=== PATIENT | female | born 1930 | race Caucasian/White ===

== ENCOUNTER 2017-05-10 10:57 | Emergency (ER) | payer MEDICARE ==
[2017-05-10] MEDS ORDERED: IPRATROPIUM-ALBUTEROL 3 ML NEB INHALATION STA (11:16)
[2017-05-10] MEDS ORDERED: SODIUM CHLORIDE 0.9% 1,000 ML IV STA (11:16)
--- NOTE | 2017-05-10 11:22 | ED ---
General Adult HPI - General Chief complaint: Dizziness Stated complaint: dizziness Time Seen by Provider: 05/10/17 11:04 Source: patient, RN notes reviewed Mode of arrival: EMS Limitations: no limitations - History of Present Illness Initial comments: Patient is a pleasant 87-year-old female presenting to the emergency department with lightheadedness. Patient states she got up to use the restroom this morning and afterwards felt lightheaded. Patient states that has improved. Patient states she felt somewhat weak all over which is also improved. Patient states now she feels somewhat shaky. Patient does have some nausea. Patient has been coughing up some phlegm which is fairly chronic for her. Patient states she did not get her breathing treatment this morning or take her medicine yet. - Related Data Home Medications Medication Instructions Recorded Confirmed Isosorbide Mononitrate ER [Imdur] 60 mg PO RT-BID 09/16/14 05/10/17 Losartan Potassium [Cozaar] 100 mg PO DAILY 09/16/14 05/10/17 Montelukast Sodium [Singulair] 10 mg PO HS 09/16/14 05/10/17 Vit C/E/Zn/Coppr/Lutein/Zeaxan 2 cap PO DAILY 09/16/14 05/10/17 [Preservision Areds 2 Softgel] amLODIPine [Norvasc] 10 mg PO HS 09/16/14 05/10/17 Albuterol Sulfate [Proair Hfa] 2 puff INHALATION RT-Q6H PRN 09/28/14 05/10/17 Ipratropium-Albuterol Nebulize 3 ml INHALATION RT-QID 09/28/14 05/10/17 [Duoneb 0.5 mg-3 mg/3 ml Soln] Acetaminophen/Diphenhydramine 1 tab PO HS PRN 12/06/15 05/10/17 [Tylenol PM 500-25mg] Aspirin EC [Ecotrin Low Dose] 81 mg PO DAILY 12/06/15 05/10/17 Loratadine [Claritin] 10 mg PO DAILY 12/06/15 05/10/17 Ranitidine HCl [Zantac] 150 mg PO DAILY 12/06/15 05/10/17 Fluticasone/Salmeterol [Advair 2 puff INHALATION RT-DAILY 05/10/17 05/10/17 250-50 Diskus] cloNIDine 0.3 MG/24HR PATCH 1 patch TRANSDERM FR 05/10/17 05/10/17 [Catapres-Tts 0.3MG Patch] Previous Rx's Medication Instructions Recorded Nitroglycerin Sl Tabs [Nitrostat] 0.4 mg SUBLINGUAL Q5M PRN #0 tab 09/25/14 Atorvastatin [Lipitor] 40 mg PO HS #60 tab 09/30/14 hydrALAZINE HCL [Apresoline] 50 mg PO TID #90 tab 10/10/14 LORazepam [Ativan] 0.5 mg PO HS PRN #14 tab 03/13/16 Allergies Allergy/AdvReac Type Severity Reaction Status Date / Time No Known Allergies Allergy Verified 05/10/17 11:14 Review of Systems ROS Statement: Those systems with pertinent positive or pertinent negative responses have been documented in the HPI. ROS Other: All systems not noted in ROS Statement are negative. Constitutional: Denies: fever Eyes: Denies: eye pain ENT: Denies: ear pain Respiratory: Reports: cough Cardiovascular: Denies: chest pain Endocrine: Reports: fatigue (Chronic) Gastrointestinal: Denies: abdominal pain Genitourinary: Denies: dysuria Musculoskeletal: Denies: back pain Skin: Denies: rash Neurological: Denies: confusion Past Medical History Past Medical History: Asthma, Coronary Artery Disease (CAD), Cancer, Heart Failure, COPD, CVA/TIA, Hyperlipidemia, Hypertension, Myocardial Infarction ([place]) , Osteoarthritis (OA), Pneumonia Additional Past Medical History / Comment(s): brain aneurysm, hiatal hernia, skin cancer, hx "3 blood clots in lt shoulder after rotator cuff surgery", macular degeneration Last Myocardial Infarction Date:: 2014 History of Any Multi-Drug Resistant Organisms: None Reported Past Surgical History: Adenoidectomy, Heart Catheterization, Heart Catheterization With Stent, Orthopedic Surgery, Tonsillectomy Additional Past Surgical History / Comment(s): rt shoulder, left rotator cuff, sandra knee arthroscopy, myringotomy, cataracts Past Anesthesia/Blood Transfusion Reactions: Motion Sickness Date of Last Stent Placement:: 09/2014 Past Psychological History: Anxiety Smoking Status: Former smoker - Past Family History Father Family Medical History: Cancer Mother Family Medical History: Deep Vein Thrombosis (DVT) General Exam Limitations: no limitations General appearance: alert, in no apparent distress Head exam: Present: atraumatic Eye exam: Present: normal appearance, PERRL ENT exam: Present: normal oropharynx Neck exam: Present: normal inspection Respiratory exam: Present: normal lung sounds bilaterally Cardiovascular Exam: Present: regular rate, normal rhythm GI/Abdominal exam: Present: soft, hernia (Large reducible ventral hernia without tenderness.). Absent: tenderness Extremities exam: Present: normal inspection Neurological exam: Present: alert, oriented X3, CN II-XII intact. Absent: motor sensory deficit Psychiatric exam: Present: normal affect, normal mood Skin exam: Present: normal color Course Vital Signs 05/10/17 05/10/17 05/10/17 11:05 11:21 11:24 Temperature 97 F L Pulse Rate 102 H 86 88 Respiratory 18 Rate Blood Pressure 209/92 O2 Sat by Pulse 93 L Oximetry 05/10/17 05/10/17 11:42 12:34 Temperature Pulse Rate 83 80 Respiratory 16 24 Rate Blood Pressure 189/98 186/87 O2 Sat by Pulse 98 94 L Oximetry - Reevaluation(s) Reevaluation #1: 05/10/17 13:36 Call received from radiologist regarding abnormal CT findings. Patient reevaluated. Patient and family updated. Patient states she has previously seen Dr. Solano and does have a history of aneurysm. [facility] will be contacted for transfer. 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 05/10/17 13:43 Case was discussed with Dr. Blair at [facility], who will accept transfer. EKG Findings - EKG Comments: EKG Findings:: Sinus rhythm 88. PVC present. IN 190. QRS 158. QT 426. QTc 515. Left axis. Left bundle branch block. Nonspecific ST-T. Medical Decision Making - Lab Data Result diagrams: 05/10/17 11:29 05/10/17 11:29 Lab Results 05/10/17 05/10/17 05/10/17 Range/Units 11:17 11:29 11:29 WBC 8.1 (3.8-10.6) k/uL RBC 4.92 (3.80-5.40) m/uL Hgb 14.1 (11.4-16.0) gm/dL Hct 45.1 (34.0-46.0) % MCV 91.7 (80.0-100.0) fL MCH 28.7 (25.0-35.0) pg MCHC 31.3 (31.0-37.0) g/dL RDW 14.1 (11.5-15.5) % Plt Count 250 (150-450) k/uL Neutrophils % 71 % Lymphocytes % 17 % Monocytes % 7 % Eosinophils % 3 % Basophils % 0 % Neutrophils # 5.7 (1.3-7.7) k/uL Lymphocytes # 1.4 (1.0-4.8) k/uL Monocytes # 0.5 (0-1.0) k/uL Eosinophils # 0.3 (0-0.7) k/uL Basophils # 0.0 (0-0.2) k/uL PT (9.0-12.0) sec INR (<1.2) APTT (22.0-30.0) sec Sodium 138 (137-145) mmol/L Potassium 3.5 (3.5-5.1) mmol/L Chloride 99 (98-107) mmol/L Carbon Dioxide 28 (22-30) mmol/L Anion Gap 11 mmol/L BUN 12 (7-17) mg/dL Creatinine 0.70 (0.52-1.04) mg/dL Est GFR (MDRD) Af Amer >60 (>60 ml/min/1.73 sqM) Est GFR (MDRD) Non-Af >60 (>60 ml/min/1.73 sqM) Glucose 156 H (74-99) mg/dL POC Glucose (mg/dL) 160 H (75-99) mg/dL POC Glu Lining Maker Hand ID Caridad Newberry Calcium 9.7 (8.4-10.2) mg/dL Total Bilirubin 0.7 (0.2-1.3) mg/dL AST 21 (14-36) U/L ALT 26 (9-52) U/L Alkaline Phosphatase 85 (38-126) U/L Total Creatine Kinase (30-135) U/L CK-MB (CK-2) (0.0-2.4) ng/mL CK-MB (CK-2) Rel Index Troponin I (0.000-0.034) ng/mL Total Protein 6.8 (6.3-8.2) g/dL Albumin 4.2 (3.5-5.0) g/dL 05/10/17 05/10/17 Range/Units 11:29 11:29 WBC (3.8-10.6) k/uL RBC (3.80-5.40) m/uL Hgb (11.4-16.0) gm/dL Hct (34.0-46.0) % MCV (80.0-100.0) fL MCH (25.0-35.0) pg MCHC (31.0-37.0) g/dL RDW (11.5-15.5) % Plt Count (150-450) k/uL Neutrophils % % Lymphocytes % % Monocytes % % Eosinophils % % Basophils % % Neutrophils # (1.3-7.7) k/uL Lymphocytes # (1.0-4.8) k/uL Monocytes # (0-1.0) k/uL Eosinophils # (0-0.7) k/uL Basophils # (0-0.2) k/uL PT 9.7 (9.0-12.0) sec INR 1.0 (<1.2) APTT 23.1 (22.0-30.0) sec Sodium (137-145) mmol/L Potassium (3.5-5.1) mmol/L Chloride (98-107) mmol/L Carbon Dioxide (22-30) mmol/L Anion Gap mmol/L BUN (7-17) mg/dL Creatinine (0.52-1.04) mg/dL Est GFR (MDRD) Af Amer (>60 ml/min/1.73 sqM) Est GFR (MDRD) Non-Af (>60 ml/min/1.73 sqM) Glucose (74-99) mg/dL POC Glucose (mg/dL) (75-99) mg/dL POC Glu Lining Maker Hand ID Calcium (8.4-10.2) mg/dL Total Bilirubin (0.2-1.3) mg/dL AST (14-36) U/L ALT (9-52) U/L Alkaline Phosphatase (38-126) U/L Total Creatine Kinase 49 (30-135) U/L CK-MB (CK-2) 1.2 (0.0-2.4) ng/mL CK-MB (CK-2) Rel Index 2.4 Troponin I 0.023 (0.000-0.034) ng/mL Total Protein (6.3-8.2) g/dL Albumin (3.5-5.0) g/dL - Radiology Data Radiology results: image reviewed (Computed tomography scan of the brain does show 1.1 x 1.5 x 1.8) parenchymal hemorrhage within the cerebellum. 1 view abdominal x-ray shows nonobstructive gas pattern. Two-view chest x-ray shows interstitial densities) Critical Care Time Critical Care Time: Yes Total Critical Care Time: 32 Disposition Clinical Impression: Cerebellar hemorrhage, acute Disposition: OTHER INSTITUTION NOT DEFINED Condition: Serious Referrals: Santi Lester MD [Primary Care Provider] - 1-2 days Time of Disposition: 13:45 - Out of Hospital Transfer - Req. Specs Out of Hospital Transfer - Requested Specifics: Other Emergency Center
[2017-05-10 11:23] LABS: Glucose,Whole Blood 160 mg/dL (75-99)
[2017-05-10] MEDS: METOCLOPRAMIDE 5 MG/ML 2 ML VIAL IVP STA ×2 (11:37→13:58)
[2017-05-10 11:43] LABS: Basophils % (A) 0 %; Eosinophils # (A) 0.3 k/uL (0-0.7); Eosinophils % (A) 3 %; HCT 45.1 % (34.0-46.0); HGB 14.1 gm/dL (11.4-16.0); Lymphocytes # (A) 1.4 k/uL (1.0-4.8); Lymphocytes % (A) 17 %; MCH 28.7 pg (25.0-35.0); MCHC 31.3 g/dL (31.0-37.0); MCV 91.7 fL (80.0-100.0); Mean Platelet Volume 6.7; Monocytes # (A) 0.5 k/uL (0-1.0); Monocytes % (A) 7 %; Neutrophils # (A) 5.7 k/uL (1.3-7.7); Neutrophils % (A) 71 %; Platelet Count 250 k/uL (150-450); RBC 4.92 m/uL (3.80-5.40); RDW 14.1 % (11.5-15.5); WBC 8.1 k/uL (3.8-10.6)
[2017-05-10 11:52] LABS: ALT 26 U/L (9-52); AST 21 U/L (14-36); Albumin 4.2 g/dL (3.5-5.0); Alkaline Phosphatase 85 U/L (38-126); Anion Gap 11 mmol/L; Blood Urea Nitrogen 12 mg/dL (7-17); Calcium 9.7 mg/dL (8.4-10.2); Carbon Dioxide 28 mmol/L (22-30); Chloride 99 mmol/L (98-107); Glucose 156 mg/dL (74-99); Potassium 3.5 mmol/L (3.5-5.1); Sodium 138 mmol/L (137-145); Total Bilirubin 0.7 mg/dL (0.2-1.3); Total Protein 6.8 g/dL (6.3-8.2)
[2017-05-10 12:19] LABS: Creatine Kinase MB 1.2 ng/mL (0.0-2.4); Troponin I 0.023 ng/mL (0.000-0.034)
[2017-05-10] MEDS ORDERED: ONDANSETRON 4 MG/2 ML VIAL IVP STA (12:30)
--- NOTE | 2017-05-10 12:31 | XR ---
EXAMINATION TYPE: XR chest 2V DATE OF EXAM: 05/10/2017 COMPARISON: 03/10/2016 HISTORY: 87-year-old female with a weakness and dizziness TECHNIQUE: AP and lateral views FINDINGS: Limited portable, rightward rotated exam. Heart appears mildly enlarged. Diffuse interstitial promine nce. Reticular densities persist peripherally and at the lung bases. Possible trace effusions. IMPRESSION: 1. Limited rotated exam. 2. Cardiomegaly and COPD. 3. Extensive interstitial densities in part chronic. Correlate for superimposed on avascular congesti on. 3. Possible trace effusions. Some patchy right basilar opacity could represent atelectasis or infiltr ate.
--- NOTE | 2017-05-10 12:32 | XR ---
EXAMINATION TYPE: XR abdomen 1V DATE OF EXAM: 05/10/2017 CLINICAL DATA: 87-year-old female with abdominal pain, [facility] COMPARISON: None FINDINGS: No dilated bowel loops. Mild scattered stool. Supine imaging limited for assessment of free air. Vasc ular calcifications in the pelvis. Bowel content partially obscures the left renal shadow. Degenerated dextroconvex scoliosis. IMPRESSION: Nonobstructive bowel gas pattern.
[2017-05-10 12:44] LABS: Partial Thromboplastin Time 23.1 sec (22.0-30.0); Prothrombin Time 9.7 sec (9.0-12.0)
--- NOTE | 2017-05-10 13:21 | CT ---
EXAMINATION TYPE: CT brain wo con DATE OF EXAM: 05/10/2017 COMPARISON: NONE INDICATION: Dizziness DLP: 1094 mGycm, Automated exposure control for dose reduction was used. CONTRAST: None CT of the brain is performed utilizing 3 mm thick sections through the posterior fossa and 3 mm thick sections through the remaining calvarium. Study is performed within 24 hours of arrival to the hosp [facility]. There is a 1.1 x 1.5 x 1.8 cm hyperintense collection posterior to the fourth ventricle extending tow ards the vermis. Findings can be compatible with a small hemorrhage. Some posterior wall fourth ventr icular compression may be present. Report was immediately called to Dr. Flood by Dr. Echeverria by telep cain 1315 hours 05/10/2017 No additional areas suspicious for acute hemorrhage is evident. No mass lesion is evident. No acute infarcts are evident. Periventricular white matter hypodensity is present, likely on the bas is of microvascular ischemic change. Ventricles and sulci are prominent for the patient age. Paranasal sinuses and mastoid air cells within the [id number] are clear. IMPRESSIONS: 1. Findings suggestive for a intraparenchymal hemorrhage within the cerebellum just off the midline . This has minimal posterior wall effacement of the fourth ventricle without hydrocephalus. 2. Atrophy with periventricular white matter ischemic changes
[2017-05-10] MEDS ORDERED: LABETALOL 5 MG/ML VIAL MDV IVP STA (13:43)
[2017-05-10 13:51] VITALS: RESP 16
[2017-05-10 14:05] VITALS: BP 158/63; PULSE 62
[2017-05-10 14:15] VITALS: TEMP 97.9
== END 2017-05-10 14:13 | disposition other institution (70) ==
LOC: EC 10:57
DX: I61.4 Nontraumatic intracerebral hemorrhage in cerebellum (principal); I25.10 Atherosclerotic heart disease of native coronary artery without angina pectoris; J44.9 Chronic obstructive pulmonary disease, unspecified; I11.0 Hypertensive heart disease with heart failure; I50.9 Heart failure, unspecified; I25.2 Old myocardial infarction; Z86.69 Personal history of other diseases of the nervous system and sense organs; Z86.73 Personal history of transient ischemic attack (TIA), and cerebral infarction without residual deficits; Z85.828 Personal history of other malignant neoplasm of skin; Z95.5 Presence of coronary angioplasty implant and graft; Z87.891 Personal history of nicotine dependence; Z79.51 Long term (current) use of inhaled steroids; Z79.82 Long term (current) use of aspirin; Z79.899 Other long term (current) drug therapy
CPT/HCPCS: 36415; 94640; 93005; 80053; 82550; 82553; 84484; 85025; 85610; 85730; 71046; 74018; 70450; 99291; 96374; 96375 ×2; 96361 ×3; J2765; J2405